=== PATIENT | female | born 1995 | race American Indian/Alaskan Native ===

== ENCOUNTER 2017-09-08 15:51 | Emergency (ER) | payer OTHER ==
[2017-09-08 16:08] VITALS: BP 105/62
[2017-09-08] MEDS ORDERED: NORCO 5/325 PO ONE (17:43)
--- NOTE | 2017-09-08 18:50 | XRay Report ---
FINAL REPORT PROCEDURE: XR ANKLE 3+V LT TECHNIQUE: LEFT ankle radiographs, AP, lateral, and oblique views. CPT 11875 HISTORY: Left ankle pain. COMPARISON: No prior studies are available for comparison. FINDINGS: Fracture (s) and/or Dislocation(s): None. Alignment: Normal. Joint space(s): Normal. Soft tissues: Normal. Bone mineralization: Normal. Foreign bodies: None. Calcaneal spurring: None. IMPRESSION: No radiographic evidence of displaced fracture..
--- NOTE | 2017-09-08 18:54 | Emergency Department Report ---
Chief Complaint: Extremity Injury, Lower Stated Complaint: LEFT ANKLE PAIN Time Seen by Provider: 09/08/17 17:43 - HPI History of Present Illness: The patient is to 21-year-old female presents for evaluation of right ankle pain. The patient states that she twisted her ankle one day ago. She has experienced constant pain since, aching in quality, exacerbated with attempted weightbearing. - Exam Vital Signs: Vital Signs 09/08/17 15:56 Temperature 98.2 F Pulse Rate 88 Blood Pressure 105/62 MSE screening note: Focused history and physical exam performed. Due to findings the following was ordered: ED Disposition for MSE Condition: Stable Referrals: PRIMARY CARE, [Primary Care Provider] - 3-5 Days
[2017-09-08] MEDS ORDERED: MOTRIN ONE (19:02)
[2017-09-08] MEDS ORDERED: TRIPLE ANTIBIOTIC TP ONE ×2 (19:02→19:05)
[2017-09-08] MEDS ORDERED: MOTRIN PO ONE (19:05)
--- NOTE | 2017-09-08 19:14 | Emergency Department Report ---
ED Lower Extremity HPI - General Chief Complaint: Extremity Injury, Lower Stated Complaint: LEFT ANKLE PAIN Time Seen by Provider: 09/08/17 17:43 Source: patient Mode of arrival: Ambulatory Limitations: No Limitations - History of Present Illness Initial Comments: 21-year-old female past medical history none presents with complaint of left ankle pain status post mechanical inversion injury. Patient accidentally tripped over a branch while walking outside of the home. Denies any other injuries. States she has pain bearing weight on left ankle. Patient can stand but has difficulty taking more than 2-3 steps denies foot pain denies any other injuries. Complaint: ankle injury -: This afternoon Injury: Ankle: Left Type of Injury: inversion Place: street/outdoors Severity: moderate Severity scale (0 -10): 6 Context: other Associated Symptoms: swelling, able to partially bear weight - Related Data Previous Rx's Medication Instructions Recorded Last Taken Type Acetaminophen/Codeine [Tylenol 1 tab PO Q6H PRN #5 tab 09/08/17 Unknown Rx /Codeine # 3 tab] Ibuprofen [Motrin] 800 mg PO Q8HR PRN #20 tablet 09/08/17 Unknown Rx Allergies Allergy/AdvReac Type Severity Reaction Status Date / Time No Known Allergies Allergy Unverified 09/08/17 15:56 ED Review of Systems ROS: Stated complaint: LEFT ANKLE PAIN Other details as noted in HPI Constitutional: denies: chills, fever Eyes: denies: eye pain, eye discharge, vision change ENT: denies: ear pain, throat pain Respiratory: denies: cough, shortness of breath, wheezing Cardiovascular: denies: chest pain, palpitations Endocrine: no symptoms reported Gastrointestinal: denies: abdominal pain, nausea, diarrhea Genitourinary: denies: urgency, dysuria, discharge Musculoskeletal: denies: back pain, joint swelling, arthralgia Skin: denies: rash, lesions Neurological: denies: headache, weakness, paresthesias Psychiatric: denies: anxiety, depression Hematological/Lymphatic: denies: easy bleeding, easy bruising ED Past Medical Hx - Past Medical History Additional medical history: Hx of Gallstones. H. pylori - Surgical History Additional Surgical History: Medal implants in left hip - Social History Smoking Status: Current Every Day Smoker Substance Use Type: Marijuana - Medications Home Medications: Home Medications Medication Instructions Recorded Confirmed Last Taken Type Acetaminophen/Codeine [Tylenol 1 tab PO Q6H PRN #5 tab 09/08/17 Unknown Rx /Codeine # 3 tab] Ibuprofen [Motrin] 800 mg PO Q8HR PRN #20 tablet 09/08/17 Unknown Rx ED Physical Exam - General Limitations: No Limitations General appearance: alert, in no apparent distress - Head Head exam: Present: atraumatic, normocephalic - Eye Eye exam: Present: normal appearance, PERRL, EOMI - ENT ENT exam: Present: mucous membranes moist - Neck Neck exam: Present: normal inspection - Respiratory Respiratory exam: Present: normal lung sounds bilaterally. Absent: respiratory distress - Cardiovascular Cardiovascular Exam: Present: regular rate, normal rhythm. Absent: systolic murmur, diastolic murmur, rubs, gallop - GI/Abdominal GI/Abdominal exam: Present: soft, normal bowel sounds - Extremities Exam Extremities exam: Present: normal inspection - Expanded Lower Extremity Exam Left Hip exam: Present: normal inspection, full ROM Upper Leg exam: Present: normal inspection, full ROM Knee exam: Present: normal inspection, full ROM Lower Leg exam: Present: normal inspection, full ROM Ankle exam: Present: full ROM, tenderness (at left lateral malleolus), swelling Foot/Toe exam: Present: normal inspection, full ROM Neuro vascular tendon exam: Present: no vascular compromise (distal pulses intact) Gait: Positive: antalgic 1 - Pain and swelling - Back Exam Back exam: Present: normal inspection - Neurological Exam Neurological exam: Present: alert, oriented X3 - Psychiatric Psychiatric exam: Present: normal affect, normal mood - Skin Skin exam: Present: warm, dry, intact, normal color. Absent: rash ED Course Vital Signs 09/08/17 15:56 Temperature 98.2 F Pulse Rate 88 Blood Pressure 105/62 ED Lower Extremity MDM - Medical Decision Making A/P: Left ankle sprain 1-x-ray shows no fractures, Motrin 800 when necessary, RICE therapy, crutches and ankle stirrup splint 2-follow-up with primary care and orthopedics 3-nonweightbearing for now at least 2-3 days, weightbearing on ankle as tolerated over the next week Critical care attestation.: If time is entered above; I have spent that time in minutes in the direct care of this critically ill patient, excluding procedure time. ED Disposition Clinical Impression: Left ankle sprain Qualifiers: Encounter type: initial encounter Involved ligament of ankle: tibiofibular ligament Qualified Code(s): S93.432A - Sprain of tibiofibular ligament of left ankle, initial encounter Disposition: TO HOME OR SELFCARE Is pt being admited?: No Does the pt Need Aspirin: No Condition: Stable Instructions: Ankle Sprain (ED), Ankle Stirrup Splint (ED), RICE Therapy (ED) Prescriptions: Acetaminophen/Codeine [Tylenol /Codeine # 3 tab] 1 tab PO Q6H PRN #5 tab PRN Reason: Pain Ibuprofen [Motrin] 800 mg PO Q8HR PRN #20 tablet PRN Reason: Pain Referrals: [facility] [Provider Group] - 3-5 Days Forms: Work/School Release Form(ED), Accompanied Note Time of Disposition: 19:13
== END 2017-09-08 19:10 | disposition home or self-care (01) ==
LOC: ED 15:51
DX: S93.402A Sprain of unspecified ligament of left ankle, initial encounter (principal); F17.200 Nicotine dependence, unspecified, uncomplicated; F12.10 Cannabis abuse, uncomplicated; X58.XXXA Exposure to other specified factors, initial encounter; Y93.89 Activity, other specified; Y92.89 Other specified places as the place of occurrence of the external cause; Y99.8 Other external cause status
CPT/HCPCS: 99283; A6250

== ENCOUNTER 2018-10-04 11:10 | Emergency (ER) | payer OTHER ==
[2018-10-04 11:20] VITALS: BP 127/70
== END 2018-10-04 11:42 ==
LOC: ED 11:10
DX: O26.891 Other specified pregnancy related conditions, first trimester (principal); R10.2 Pelvic and perineal pain; Z3A.01 Less than 8 weeks gestation of pregnancy; Z53.21 Procedure and treatment not carried out due to patient leaving prior to being seen by health care provider

== ENCOUNTER 2018-12-12 18:14 | Emergency (ER) | payer OTHER ==
--- NOTE | 2018-12-12 18:43 | Event Note ---
ED Screening Note Date of service: 12/12/18 Time: 18:23 ED Screening Note: 23 y/o female comes for near syncope episode. Having dizziness. This initial assessment/diagnostic orders/clinical plan/treatment(s) is/are subject to change based on patients health status, clinical progression and re- assessment by fellow clinical providers in the ED. Further treatment and workup at subsequent clinical providers discretion. Patient/guardian urged not to elope from the ED as their condition may be serious if not clinically assessed and managed. Initial orders include:
[2018-12-12] MEDS ORDERED: NACL 0.9% 1000 ML 1,000 ML IV ONE (19:33)
[2018-12-12] MEDS ORDERED: ZOFRAN IV ONE (19:33)
--- NOTE | 2018-12-12 19:40 | Emergency Department Report ---
ED Dizziness HPI - General Chief Complaint: Dizziness Stated Complaint: DIZZY Time Seen by Provider: 12/12/18 19:18 Source: patient Mode of arrival: Ambulatory Limitations: No Limitations - History of Present Illness Initial Comments: 23 y/o female comes for near syncope episode. Having dizziness. pt is 14 weeks G2, P1, A0, generalized weakness dizziness and malaise last by mouth intake was at 11:00 today last night and vomiting was 11:30 patient has history of H. pylori here with medications since advises that she couldn't take him during there is no chest pain or shortness of breath no palpitations there is no vaginal bleeding there is abdominal cramping 10/04 patient denies any vaginal discharge other than normal discharge describes as white normal there is no back pain no vaginal bleeding MD Complaint: dizziness, lightheadedness Onset/Timin -: days(s) Timing: gradual onset, awoke with symptoms Description: sense of movement, near-syncope History of Same: Yes History of Trauma: No Severity: moderate Improves With: nothing Worsens With: movement, exertion Associated Symptoms: weakness - Related Data Previous Rx's Medication Instructions Recorded Last Taken Type Acetaminophen/Codeine [Tylenol 1 tab PO Q6H PRN #5 tab 09/08/17 Unknown Rx /Codeine # 3 tab] Ibuprofen [Motrin] 800 mg PO Q8HR PRN #20 tablet 09/08/17 Unknown Rx Acetaminophen [Acetaminophen TAB] 650 mg PO Q6HR PRN #30 tablet 12/12/18 Unknown Rx Metoclopramide [Reglan] 10 mg PO TID PRN #30 tablet 12/12/18 Unknown Rx diphenhydrAMINE [Benadryl CAP] 25 mg PO Q8HR PRN #30 capsule 12/12/18 Unknown Rx Allergies Allergy/AdvReac Type Severity Reaction Status Date / Time No Known Allergies Allergy Verified 10/04/18 11:12 ED Review of Systems ROS: Stated complaint: DIZZY Other details as noted in HPI Constitutional: denies: chills, fever Eyes: denies: eye pain, eye discharge, vision change ENT: denies: ear pain, throat pain Respiratory: denies: cough, shortness of breath, wheezing Cardiovascular: denies: chest pain, palpitations Endocrine: no symptoms reported Gastrointestinal: abdominal pain, nausea, vomiting. denies: diarrhea, co nstipation Genitourinary: denies: urgency, dysuria, frequency, hematuria, discharge Musculoskeletal: denies: back pain, joint swelling, arthralgia Skin: as per HPI Neurological: weakness Psychiatric: anxiety. denies: depression Hematological/Lymphatic: denies: easy bleeding, easy bruising ED Past Medical Hx - Past Medical History Previous Medical History?: Yes Additional medical history: Hx of Gallstones. H. pylori - Surgical History Past Surgical History?: Yes Additional Surgical History: Metal implants in left hip - Social History Smoking Status: Current Every Day Smoker Substance Use Type: Marijuana - Medications Home Medications: Home Medications Medication Instructions Recorded Confirmed Last Taken Type Acetaminophen/Codeine [Tylenol 1 tab PO Q6H PRN #5 tab 09/08/17 Unknown Rx /Codeine # 3 tab] Ibuprofen [Motrin] 800 mg PO Q8HR PRN #20 tablet 09/08/17 Unknown Rx Acetaminophen [Acetaminophen TAB] 650 mg PO Q6HR PRN #30 tablet 12/12/18 Unknown Rx Metoclopramide [Reglan] 10 mg PO TID PRN #30 tablet 12/12/18 Unknown Rx diphenhydrAMINE [Benadryl CAP] 25 mg PO Q8HR PRN #30 capsule 12/12/18 Unknown Rx ED Physical Exam - General Limitations: No Limitations General appearance: alert, in no apparent distress - Head Head exam: Present: atraumatic, normocephalic - Eye Eye exam: Present: normal appearance, PERRL, EOMI Pupils: Present: normal accommodation - ENT ENT exam: Present: normal orophraynx, mucous membranes moist, TM's normal bilaterally, normal external ear exam - Neck Neck exam: Present: normal inspection, full ROM, lymphadenopathy. Absent: tenderness - Respiratory Respiratory exam: Present: normal lung sounds bilaterally. Absent: respiratory distress, wheezes, stridor, chest wall tenderness - Cardiovascular Cardiovascular Exam: Present: regular rate, normal rhythm, normal heart sounds. Absent: systolic murmur, diastolic murmur, rubs, gallop - GI/Abdominal GI/Abdominal exam: Present: soft, normal bowel sounds. Absent: distended, tenderness, guarding, rebound, rigid, bruit, hernia - Rectal Rectal exam: Present: deferred - Extremities Exam Extremities exam: Present: normal inspection, full ROM, normal capillary refill. Absent: tenderness, pedal edema, joint swelling - Back Exam Back exam: Present: normal inspection, full ROM. Absent: tenderness, CVA tenderness (R), CVA tenderness (L), muscle spasm, rash noted - Neurological Exam Neurological exam: Present: alert, oriented X3, CN II-XII intact, normal gait - Psychiatric Psychiatric exam: Present: anxious - Skin Skin exam: Present: warm, dry, intact, normal color. Absent: rash ED Medical Decision Making - Lab Data Result diagrams: 12/12/18 19:12/12/18 19:09 Lab Results 12/12/18 12/12/18 12/12/18 Range/Units 19:09 19:09 19:47 WBC 7.3 (4.5-11.0) K/mm3 RBC 3.46 L (3.65-5.03) M/mm3 Hgb 10.5 (10.1-14.3) gm/dl Hct 29.7 L (30.3-42.9) % MCV 86 (79-97) fl MCH 30 (28-32) pg MCHC 36 H (30-34) % RDW 14.5 (13.2-15.2) % Plt Count 230 (140-440) K/mm3 Lymph % (Auto) 35.2 H (13.4-35.0) % [place] % (Auto) 9.6 H (0.0-7.3) % Eos % (Auto) 1.5 (0.0-4.3) % Baso % (Auto) 0.6 (0.0-1.8) % Lymph # 2.6 (1.2-5.4) K/mm3 [place] # 0.7 (0.0-0.8) K/mm3 Eos # 0.1 (0.0-0.4) K/mm3 Baso # 0.0 (0.0-0.1) K/mm3 Seg Neutrophils % 53.1 (40.0-70.0) % Seg Neutrophils # 3.9 (1.8-7.7) K/mm3 Sodium 136 L (137-145) mmol/L Potassium 4.2 (3.6-5.0) mmol/L Chloride 102.5 (98-107) mmol/L Carbon Dioxide 21 L (22-30) mmol/L Anion Gap 17 mmol/L BUN 11 (7-17) mg/dL Creatinine 0.6 L (0.7-1.2) mg/dL Estimated GFR > 60 ml/min BUN/Creatinine Ratio 18 % Glucose 91 (65-100) mg/dL Calcium 8.7 (8.4-10.2) mg/dL Magnesium (1.7-2.3) mg/dL Troponin T (0.00-0.029) ng/mL HCG, Quant (0-4) mIU/mL Urine Color Yellow (Yellow) Urine Turbidity Clear (Clear) Urine pH 6.0 (5.0-7.0) Ur Specific [place] 1.026 (1.003-1.030) Urine Protein <15 mg/dl (Negative) mg/dL Urine Glucose (UA) Neg (Negative) mg/dL Urine Ketones Neg (Negative) mg/dL Urine Blood Neg (Negative) Urine Nitrite Neg (Negative) Ur Reducing Substances Not Reportable Urine Bilirubin Neg (Negative) Urine Ictotest Not Reportable Urine Urobilinogen < 2.0 (<2.0) mg/dL Ur Leukocyte Esterase Neg (Negative) Urine WBC (Auto) 2.0 (0.0-6.0) /HPF Urine RBC (Auto) 1.0 (0.0-6.0) /HPF U Epithel Cells (Auto) 2.0 (0-13.0) /HPF Urine Mucus Few /HPF Urine HCG, Qual Positive A (Negative) Blood Type 12/12/18 12/12/18 12/12/18 Range/Units 20:03 20:03 20:06 WBC (4.5-11.0) K/mm3 RBC (3.65-5.03) M/mm3 Hgb (10.1-14.3) gm/dl Hct (30.3-42.9) % MCV (79-97) fl MCH (28-32) pg MCHC (30-34) % RDW (13.2-15.2) % Plt Count (140-440) K/mm3 Lymph % (Auto) (13.4-35.0) % [place] % (Auto) (0.0-7.3) % Eos % (Auto) (0.0-4.3) % Baso % (Auto) (0.0-1.8) % Lymph # (1.2-5.4) K/mm3 [place] # (0.0-0.8) K/mm3 Eos # (0.0-0.4) K/mm3 Baso # (0.0-0.1) K/mm3 Seg Neutrophils % (40.0-70.0) % Seg Neutrophils # (1.8-7.7) K/mm3 Sodium (137-145) mmol/L Potassium (3.6-5.0) mmol/L Chloride (98-107) mmol/L Carbon Dioxide (22-30) mmol/L Anion Gap mmol/L BUN (7-17) mg/dL Creatinine (0.7-1.2) mg/dL Estimated GFR ml/min BUN/Creatinine Ratio % Glucose (65-100) mg/dL Calcium (8.4-10.2) mg/dL Magnesium 1.80 (1.7-2.3) mg/dL Troponin T < 0.010 (0.00-0.029) ng/mL HCG, Quant [id number] H (0-4) mIU/mL Urine Color (Yellow) Urine Turbidity (Clear) Urine pH (5.0-7.0) Ur Specific [place] (1.003-1.030) Urine Protein (Negative) mg/dL Urine Glucose (UA) (Negative) mg/dL Urine Ketones (Negative) mg/dL Urine Blood (Negative) Urine Nitrite (Negative) Ur Reducing Substances Urine Bilirubin (Negative) Urine Ictotest Urine Urobilinogen (<2.0) mg/dL Ur Leukocyte Esterase (Negative) Urine WBC (Auto) (0.0-6.0) /HPF Urine RBC (Auto) (0.0-6.0) /HPF U Epithel Cells (Auto) (0-13.0) /HPF Urine Mucus /HPF Urine HCG, Qual (Negative) Blood Type O POSITIVE - EKG Data EKG shows normal: sinus rhythm, axis, intervals, ST-T waves Rate: normal - EKG Data When compared to previous EKG there are: previous EKG unavailable Interpretation: other (NSR with PVC EKG interp by ED attending no ST Elevated ME, ) - Radiology Data Radiology results: report reviewed, image reviewed Ordering Physician: WYATT WATKINS NP Date of Service: 12/12/18 Procedure(s): US OB >= 14 weeks Fetus Accession Number(s): [id number] cc: WYATT WATKINS NP PROCEDURE: US OB >= 14 WEEKS FETUS TECHNIQUE: Real-time transabdominal sonography of the uterus, placenta, amniotic fluid, adnexa, and fetus was performed with image documentation. Measurements were obtained to determine age/size. M-mode Doppler was used to document heartbeat. ADDITIONAL GESTATION: None HISTORY: abd pain COMPARISONS: None. FINDINGS: MATERNAL: Uterus and cervix: Transabdominal measurement of the cervix is 4.8 cm. IUP: Single live intrauterine gestation. Position: Breech at the time of the skin Placental position: Posterior and grade 1, without previa . Amniotic fluid volume subjectively within normal limits. Cardiac activity: Regular rhythm at 166 bpm. ANATOMY: Not performed BIOMETRY: Biparietal diameter: 3.0 cm, 15 weeks 4 days. Head circumference: 11.3 cm, 15 weeks 3 days. abdominal circumference: 9.9 cm, 16 weeks 0 days. Femur length: 1.6 cm, 14 weeks 6 days. Ratio biometry: Normal . Mean Gestational Age (composite criteria) based on today's measurements: 15 weeks 3 days. Estimated Due Date : 06/02/2019. IMPRESSION: Single live intrauterine gestation at 15 weeks 3 days. Estimated due date: 06/02/2019. This document is electronically signed by Yuli Larios MD., December 12 2018 09:53:23 PM ET Transcribed By: [facility] Dictated By: YULI LARIOS M.D. Electronically Authenticated By: YULI LARIOS M.D. Signed Date/Time: 12/12/182154 DD/ 29 TD/TT: 12/12/182130 - Medical Decision Making Dizziness is resolved , labs norm, US OB : single IUP 15 weeks and 3 days, FHR: 166 bpm, pt is now tolerating po intake without symptoms plan, dc to home with rx for reglan, benadryl, and tylenol, pt will follow up with OBGYN, GI, and PCP as scheduled in 2-3 days pt for dc to home in stable condition at this time. pt verbalized agreement and understanding of discharge plan. Critical care attestation.: If time is entered above; I have spent that time in minutes in the direct care of this critically ill patient, excluding procedure time. ED Disposition Clinical Impression: Dizziness Acid reflux Qualifiers: Esophagitis presence: without esophagitis Qualified Code(s): K21.9 - Gastro- esophageal reflux disease without esophagitis Abdominal pain during Qualifiers: Trimester: second trimester Qualified Code(s): O26.892 - Other specified related conditions, second trimester; R10.9 - Unspecified abdominal pain Disposition: TO HOME OR SELFCARE Is pt being admited?: No Does the pt Need Aspirin: No Condition: Stable Prescriptions: Acetaminophen [Acetaminophen TAB] 650 mg PO Q6HR PRN #30 tablet PRN Reason: Pain diphenhydrAMINE [Benadryl CAP] 25 mg PO Q8HR PRN #30 capsule PRN Reason: dizziness Metoclopramide [Reglan] 10 mg PO TID PRN #30 tablet PRN Reason: Nausea And Vomiting Referrals: RADHA LILLY MD [Staff Physician] - 3-5 Days [facility] [Provider Group] - 3-5 Days Forms: Work/School Release Form(ED) Time of Disposition: 22:48
[2018-12-12 20:01] LABS: Basophils % (Auto) 0.6 % (0.0-1.8); Eosinophils # (Auto) 0.1 K/mm3 (0.0-0.4); Eosinophils % (Auto) 1.5 % (0.0-4.3); Hematocrit 29.7 % (30.3-42.9); Hemoglobin 10.5 gm/dl (10.1-14.3); Lymphocytes # (Auto) 2.6 K/mm3 (1.2-5.4); Lymphocytes % (Auto) 35.2 % (13.4-35.0); Mean Corpuscular HGB Conc 36 % (30-34); Mean Corpuscular Volume 86 fl (79-97); Monocytes # (Auto) 0.7 K/mm3 (0.0-0.8); Monocytes % (Auto) 9.6 % (0.0-7.3); Platelet Count 230 K/mm3 (140-440); Red Blood Count 3.46 M/mm3 (3.65-5.03); Red Cell Distribution Width 14.5 % (13.2-15.2)
[2018-12-12 20:06] LABS: HCG Qualitative,Urine Positive (Negative)
[2018-12-12 20:08] LABS: Bilirubin,Urine NEG (Negative); Blood,Urine NEG (Negative); Color,Urine Yellow (Yellow); Mucus,Urine FEW /HPF; Protein,Urine <15 mg/dL mg/dL (Negative); Urobilinogen,Urine < 2.0 mg/dL (<2.0)
[2018-12-12 20:25] LABS: BUN/Creatinine Ratio 18; Blood Urea Nitrogen 11 mg/dL (7-17); Calcium 8.7 mg/dL (8.4-10.2); Hemolysis Index 9
--- NOTE | 2018-12-12 21:55 | Ultrasound Report ---
PROCEDURE: US OB >= 14 WEEKS FETUS TECHNIQUE: Real-time transabdominal sonography of the uterus, placenta, amniotic fluid, adnexa, and fetus was performed with image documentation. Measurements were obtained to determine age/size. M-mode Doppler was used to document heartbeat. ADDITIONAL GESTATION: None HISTORY: abd pain COMPARISONS: None. FINDINGS: MATERNAL: Uterus and cervix: Transabdominal measurement of the cervix is 4.8 cm. IUP: Single live intrauterine gestation. Position: Breech at the time of the skin Placental position: Posterior and grade 1, without previa . Amniotic fluid volume subjectively within normal limits. Cardiac activity: Regular rhythm at 166 bpm. ANATOMY: Not performed BIOMETRY: Biparietal diameter: 3.0 cm, 15 weeks 4 days. Head circumference: 11.3 cm, 15 weeks 3 days. abdominal circumference: 9.9 cm, 16 weeks 0 days. Femur length: 1.6 cm, 14 weeks 6 days. Ratio biometry: Normal . Mean Gestational Age (composite criteria) based on today's measurements: 15 weeks 3 days. Estimated Due Date : 06/02/2019. IMPRESSION: Single live intrauterine gestation at 15 weeks 3 days. Estimated due date: 06/02/2019. This document is electronically signed by Yuli Sellers MD., December 12 2018 09:53:23 PM ET
== END 2018-12-12 23:07 | disposition home or self-care (01) ==
LOC: ED 18:14
DX: O99.612 Diseases of the digestive system complicating pregnancy, second trimester (principal); K21.9 Gastro-esophageal reflux disease without esophagitis; R42 Dizziness and giddiness; O21.9 Vomiting of pregnancy, unspecified; O99.332 Smoking (tobacco) complicating pregnancy, second trimester; Z79.899 Other long term (current) drug therapy; F12.10 Cannabis abuse, uncomplicated; Z3A.15 15 weeks gestation of pregnancy
CPT/HCPCS: 36415; 76805; 80048; 81001; 81025; 83735; 84484; 84702; 85025; 86900; 86901; 93005; 93010; 96361; 96374; 99284; J2405; J7030

== ENCOUNTER 2020-03-03 10:12 | Emergency (ER) | payer OTHER ==
[2020-03-03] MEDS ORDERED: ONDANSETRON 4 MG/2 ML INJ IV ONE (10:48)
[2020-03-03] MEDS ORDERED: MORPHINE 4 MG/1 ML INJ IV ONE (10:48)
[2020-03-03] MEDS ORDERED: SODIUM CHLORIDE 0.9% 1000 ML 1,000 ML IV ONE (10:48)
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
[2020-03-03 11:37] LABS: Basophils # (Auto) 0.1 K/mm3 (0.0-0.1); Basophils % (Auto) 1.1 % (0.0-1.8); Eosinophils % (Auto) 0.7 % (0.0-4.3); Hematocrit 35.2 % (30.3-42.9); Hemoglobin 12.3 gm/dl (10.1-14.3); Lymphocytes % (Auto) 29.4 % (13.4-35.0); Mean Corpuscular HGB Conc 35 % (30-34); Mean Corpuscular Volume 81 fl (79-97); Monocytes # (Auto) 0.5 K/mm3 (0.0-0.8); Monocytes % (Auto) 8.1 % (0.0-7.3); Platelet Count 331 K/mm3 (140-440); Red Blood Count 4.36 M/mm3 (3.65-5.03); Red Cell Distribution Width 16.2 % (13.2-15.2)
[2020-03-03 11:51] LABS: Bilirubin,Urine NEG (Negative); Blood,Urine SM (Negative); Color,Urine Straw (Yellow); Protein,Urine <15 mg/dL mg/dL (Negative); Urobilinogen,Urine < 2.0 mg/dL (<2.0)
[2020-03-03 12:00] LABS: WBC,Urine < 1.0 /HPF (0.0-6.0)
[2020-03-03 12:10] LABS: BUN/Creatinine Ratio 14; Blood Urea Nitrogen 11 mg/dL (7-17); Calcium 9.5 mg/dL (8.4-10.2); Hemolysis Index 29
[2020-03-03 12:12] LABS: Alanine Aminotransferase 14 units/L (7-56); Albumin 4.2 g/dL (3.9-5)
[2020-03-03 12:16] LABS: Bilirubin,Direct < 0.2 mg/dL (0-0.2)
--- NOTE | 2020-03-03 13:15 | Cat Scan Report ---
CT ABDOMEN AND PELVIS WITH CONTRAST INDICATION / CLINICAL INFORMATION: Abdominal pain. TECHNIQUE: Axial CT images were obtained through the abdomen and pelvis after 100 mL Omnipaque [address] scans at this location are performed using CT dose reduction for ALARA by means of automated exposure control. COMPARISON: None available. FINDINGS: LOWER CHEST: No significant abnormality. LIVER: No significant abnormality. GALLBLADDER: No significant abnormality. BILE DUCTS: No significant abnormality. PANCREAS: No significant abnormality. SPLEEN: No significant abnormality. ADRENALS: No significant abnormality. RIGHT KIDNEY / URETER: No significant abnormality. LEFT KIDNEY / URETER: No significant abnormality. STOMACH / SMALL BOWEL: No significant abnormality. COLON: No significant abnormality. APPENDIX: The appendix is normal in caliber with minimal surrounding edema, thought to be related to a ruptured ovarian cyst PERITONEUM: There is moderate volume of pelvic free fluid. No free air. No fluid collection. LYMPH NODES: Minimally prominent right lower quadrant lymph nodes are seen. There are also prominent left pelvic sidewall and inguinal lymph nodes. AORTA / ARTERIES: No significant abnormality. IVC / VEINS: No significant abnormality. URINARY BLADDER: No significant abnormality. REPRODUCTIVE ORGANS: There is a slightly hyperdense right ovarian cyst measuring 2.6 x 2.3 cm. This i s surrounded by free fluid and may represent a ruptured cyst. There is fluid within the endometrial c anal which may be related to the patient's menstrual cycle. ADDITIONAL FINDINGS: None. SKELETAL SYSTEM: Plate and screw construct overlying the left ischium. IMPRESSION: 1. Slightly hyperdense right ovarian cyst with surrounding pelvic free fluid is suspicious for ruptur ed ovarian cyst. 2. The appendix is normal in caliber but demonstrates mild surrounding edema. This is likely sympathe tic from a ruptured ovarian cyst. However, mild acute appendicitis cannot be completely excluded, and correlation with laboratory values and physical examination is recommended. 3. Prominent left pelvic sidewall and inguinal lymph nodes with minimally prominent right lower quadr ant nodes. These may be reactive in etiology. Signer Name: Phong Dickerson MD Signed: 03/03/2020 1:10 PM Workstation Name: [id number]
[2020-03-03 13:56] VITALS: BP 105/51
[2020-03-03] MEDS ORDERED: KETOROLAC 30 MG/1 ML INJ IV ONE (14:13)
[2020-03-03] MEDS ORDERED: KETOROLAC 30 MG/1 ML INJ ONE (14:13)
== END 2020-03-03 14:18 | disposition home or self-care (01) ==
LOC: ED 10:12
DX: N83.201 Unspecified ovarian cyst, right side (principal); R10.30 Lower abdominal pain, unspecified; F17.200 Nicotine dependence, unspecified, uncomplicated; F12.90 Cannabis use, unspecified, uncomplicated; Z79.899 Other long term (current) drug therapy; Z98.890 Other specified postprocedural states
CPT/HCPCS: 36415; 74177; 80048; 80076; 81001; 83690; 84703; 85025; 96361; 96374; 96375; 99284; J1885; J2270; J2405; J7030; Q9967

== ENCOUNTER 2020-06-03 15:29 | Emergency (ER) | payer OTHER ==
[2020-06-03 16:04] VITALS: BP 107/73
== END 2020-06-03 18:22 | disposition left against medical advice (07) ==
LOC: ED 15:29
DX: M79.10 Myalgia, unspecified site (principal); Z53.21 Procedure and treatment not carried out due to patient leaving prior to being seen by health care provider

== ENCOUNTER 2022-03-06 13:50 | Emergency (ER) | payer OTHER ==
[2022-03-06 15:26] VITALS: BP 102/73
[2022-03-06 16:40] LABS: Mucus,Urine 3+ /HPF
[2022-03-06 16:49] LABS: Color,Urine Yellow (Yellow)
[2022-03-06 17:41] LABS: Basophils % (Auto) 0.7 % (0.0-1.8); Eosinophils # (Auto) 0.2 K/mm3 (0.0-0.4); Hematocrit 30.4 % (30.3-42.9); Hemoglobin 10.5 gm/dl (10.1-14.3); Lymphocytes # (Auto) 2.9 K/mm3 (1.2-5.4); Lymphocytes % (Auto) 38.8 % (13.4-35.0); Mean Corpuscular HGB Conc 34 % (30-34); Mean Corpuscular Volume 77 fl (79-97); Monocytes # (Auto) 0.7 K/mm3 (0.0-0.8); Platelet Count 289 K/mm3 (140-440); Red Blood Count 3.94 M/mm3 (3.65-5.03); Red Cell Distribution Width 19.4 % (13.2-15.2)
== END 2022-03-06 23:10 | disposition left against medical advice (07) ==
LOC: ED 13:50
DX: N93.9 Abnormal uterine and vaginal bleeding, unspecified (principal); Z53.21 Procedure and treatment not carried out due to patient leaving prior to being seen by health care provider
CPT/HCPCS: 36415; 81001; 84703; 85025